=== PATIENT | female | born 1950 | race Caucasian/White ===

== ENCOUNTER 2023-05-05 04:31 | Emergency (ER) | payer MEDICARE, SELFPAY ==
[2023-05-05 04:34] VITALS: BP 183/91; PULSE 104; RESP 18; TEMP 36.4; O2SAT 97; BMI 26.6
--- NOTE | 2023-05-05 04:50 | ED_ITS ---
HPI - General Adult General Chief complaint: Weakness Stated complaint: FEVER Time Seen by Provider: 05/05/23 04:47 Source: patient Mode of arrival: Wheelchair History of Present Illness HPI narrative: seen by her doctor yesterday and prescribed bactrim ds for UTI. Took one dose last PM. Now presents with sl. headache, body aches and chills. No cough or dyspnea. No complaint of abdominal pain. Symptoms started 3 days ago. Had dysuria/hematuria for one day that resolved and then returned a couple of days later. States seen by PCP yesterday and prescribed bactrim. Now presents complaining of bilat lower back pain, body aches and chills Onset (ago): day(s) Related Data Previous Rx's Medication Instructions Recorded nitrofurantoin 100 mg PO BID 7 days #14 caps 05/05/23 monohydrate/macrocrystals 100 mg capsule (Macrobid) Allergies Allergy/AdvReac Type Severity Reaction Status Date / Time ciprofloxacin [From Cipro] Allergy Mild Diarrhea Verified 05/05/23 05:21 Review of Systems ROS Status of ROS 10 or more systems reviewed and unremarkable except as noted in history and below [facility] Social History Smoking status: Never smoker Exam Constitutional Vital Signs, click to edit/add: Last Vital Signs Temp 99.6 F 05/05/23 10:49 Pulse 98 H 05/05/23 10:49 Resp 12 05/05/23 10:49 BP 106/59 05/05/23 10:49 Pulse Ox 97 05/05/23 10:49 O2 Del Method Room Air 05/05/23 10:49 Common normals: no apparent distress, average body habitus, oriented x3, no limitations, healthy appearing, alert and well nourished Eye Common normals: PERRL, EOMs intact bilaterally and conjunctivae normal Respiratory Common normals: normal respiratory effort, no retractions, no use of accessory muscles and clear to auscultation bilaterally GI Common normals: Normal to inspection, nondistended, normoactive bowel sounds present, soft to palpation and non-tender Extremity Common normals: normal to inspection, full ROM and normal capillary refill Neuro Common normals: oriented x3, CN's II-XII intact bilaterally, moves all extremities, no focal motor deficits and no sensory deficits noted Psych Appearance: grossly normal Course Vital Signs Vital signs: Vital Signs Temperature 97.6 F 05/05/23 04:34 Pulse Rate 104 H 05/05/23 04:34 Respiratory Rate 18 05/05/23 04:34 Blood Pressure 183/91 H 05/05/23 04:34 Pulse Oximetry 97 05/05/23 04:34 Oxygen Delivery Method Room Air 05/05/23 04:34 Temperature 99.6 F 05/05/23 10:49 Pulse Rate 98 H 05/05/23 10:49 Respiratory Rate 12 05/05/23 10:49 Blood Pressure 106/59 05/05/23 10:49 Pulse Oximetry 97 05/05/23 10:49 Oxygen Delivery Method Room Air 05/05/23 10:49 Medical Decision Making MDM Narrative Medical decision making narrative: patient presents with bilat back pain and body aches, chills. Was seen by her PCP yesterday and prescribed Bactrim ds. Took one dose last PM and this AM not able to find a comfortable decision due to body aches and chills. Urine results here with trace leukocytes. She is afebrile. Has mild right CVA tenderness. CT ordered for possible renal stones. Care transferred to Dr Mccarty at change of shift Lab Data Labs: Lab Results 05/05/23 05/05/23 05/05/23 Range/Units 05:10 06:10 06:10 WBC 10.3 (4.0-11.0) 10^3/uL RBC 4.63 (4.20-5.40) 10^6/uL Hgb 13.8 (12.0-16.0) g/dL Hct 41.5 (36.0-48.0) % MCV 89.6 (81.0-99.0) fL MCH 29.8 (26.7-34.0) pg MCHC 33.3 (29.9-35.2) g/dL RDW 13.1 (11.0-15.0) % Plt Count 233 (150-450) 10^3/uL MPV 9.4 L (9.5-13.5) fL Neut % (Auto) 89.7 H (43.0-75.0) % Lymph % (Auto) 5.9 L (20.5-60.0) % [place] % (Auto) 3.8 (1.7-12.0) % Eos % (Auto) 0.2 L (0.9-7.0) % Baso % (Auto) 0.1 L (0.2-2.0) % Neut # (Auto) 9.2 H (1.4-6.5) 10^3/uL Lymph # (Auto) 0.6 L (1.2-3.8) 10^3/uL [place] # (Auto) 0.4 (0.3-0.8) 10^3/uL Eos # (Auto) 0.0 (0.0-0.7) 10^3/uL Baso # (Auto) 0.0 (0.0-0.1) 10^3/uL Abs Immat Gran (auto) 0.03 (0.00-0.03) 10^3/uL Imm/Tot Granulo (auto) 0.3 (0.0-0.5) % Sodium 140 (136-145) mmol/L Potassium 3.9 (3.5-5.1) mmol/L Chloride 103 (98-107) mmol/L Carbon Dioxide 28.1 (21.0-32.0) mmol/L Anion Gap 12.8 BUN 11.0 (7.0-18.0) mg/dL Creatinine 1.01 (0.55-1.02) mg/dL Est GFR ( Amer) >60 (>=60) Est GFR (Non-Af Amer) 54 L (>=60) BUN/Creatinine Ratio 10.9 Glucose 105 (74-106) mg/dL Calcium 8.6 (8.5-10.1) mg/dL Total Bilirubin 0.2 (0.2-1.0) mg/dL AST 20 (15-37) U/L ALT 16 (14-59) U/L Alkaline Phosphatase 64 (46-116) U/L Total Protein 7.0 (6.4-8.2) g/dL Albumin 3.5 (3.4-5.0) g/dL Globulin 3.5 g/dL Albumin/Globulin Ratio 1.0 Urine Color Lt. yellow (YELLOW) Urine Clarity Clear (CLEAR) Urine pH 7.5 (5.0-9.0) Ur Specific [place] 1.020 (1.005-1.025) Urine Protein Negative (NEG/TRACE) mg/dL Urine Glucose (UA) Negative (NEGATIVE) mg/dL Urine Ketones Negative (NEGATIVE) mg/dL Urine Occult Blood Negative (NEGATIVE) Urine Nitrite Negative (NEGATIVE) Urine Bilirubin Negative (NEGATIVE) Urine Urobilinogen 0.2 (0.2-1.0) EU/dL Ur Leukocyte Esterase Small A (NEGATIVE) Urine RBC 0-2 Cancelled (0-2) #/HPF Urine WBC 0-2 A (NONE SEEN) #/HPF Ur Squamous Epith Cells (NONE/RARE) #/LPF Ur Transition Epith Cell Ur Renal Epithelial Cell Urine Crystals (None Seen) #/HPF Calcium Carbonate Cryst Calcium Phosphate Cryst Calcium Oxalate Crystal Cystine Crystals Uric Acid Crystals Triple Phos Crystals Tyrosine Crystals Amorphous Sediment Urine Bacteria (NONE SEEN) #/HPF Urine Casts (NONE SEEN) #/LPF Fatty Casts Hyaline Casts Fine Granular Casts Coarse Granular Casts Waxy Casts RBC Casts Urine Starch Urine Mucus (NONE SEEN) Urine Trichomonas Urine Yeast Urine Sperm Ur Oval Fat Bodies Ur Culture Indicated? Adenovirus (PCR) (NOT DETECTE) C. pneumoniae DNA (PCR) (NOT DETECTE) Coronavirus Type OC43 (NOT DETECTE) Coronavirus Type HKU1 (NOT DETECTE) Coronavirus Type 229E (NOT DETECTE) Coronavirus Type NL63 (NOT DETECTE) Human Metapneumovir PCR (NOT DETECTE) M. pneumoniae (PCR) (NOT DETECTE) Parainfluenza PCR (NOT DETECTE) Parainfluenza 2 (PCR) (NOT DETECTE) Parainfluenza 3 (PCR) (NOT DETECTE) Parainfluenza 4 (PCR) (NOT DETECTE) RSV (RT-PCR) (NOT DETECTE) Entero/Rhino (PCR) (NOT DETECTE) SARS-CoV-2 (PCR) (NOT DETECTE) Bordetella pertussis (PCR) (NOT DETECTE) B parapertussis DNA PCR (NOT DETECTE) Influenza Type A (PCR) (NOT DETECTE) Influenza Type B (PCR) (NOT DETECTE) 05/05/23 05/05/23 05/05/23 Range/Units 06:10 06:10 06:10 WBC (4.0-11.0) 10^3/uL RBC (4.20-5.40) 10^6/uL Hgb (12.0-16.0) g/dL Hct (36.0-48.0) % MCV (81.0-99.0) fL MCH (26.7-34.0) pg MCHC (29.9-35.2) g/dL RDW (11.0-15.0) % Plt Count (150-450) 10^3/uL MPV (9.5-13.5) fL Neut % (Auto) (43.0-75.0) % Lymph % (Auto) (20.5-60.0) % [place] % (Auto) (1.7-12.0) % Eos % (Auto) (0.9-7.0) % Baso % (Auto) (0.2-2.0) % Neut # (Auto) (1.4-6.5) 10^3/uL Lymph # (Auto) (1.2-3.8) 10^3/uL [place] # (Auto) (0.3-0.8) 10^3/uL Eos # (Auto) (0.0-0.7) 10^3/uL Baso # (Auto) (0.0-0.1) 10^3/uL Abs Immat Gran (auto) (0.00-0.03) 10^3/uL Imm/Tot Granulo (auto) (0.0-0.5) % Sodium (136-145) mmol/L Potassium (3.5-5.1) mmol/L Chloride (98-107) mmol/L Carbon Dioxide (21.0-32.0) mmol/L Anion Gap BUN (7.0-18.0) mg/dL Creatinine (0.55-1.02) mg/dL Est GFR ( Amer) (>=60) Est GFR (Non-Af Amer) (>=60) BUN/Creatinine Ratio Glucose (74-106) mg/dL Calcium (8.5-10.1) mg/dL Total Bilirubin (0.2-1.0) mg/dL AST (15-37) U/L ALT (14-59) U/L Alkaline Phosphatase (46-116) U/L Total Protein (6.4-8.2) g/dL Albumin (3.4-5.0) g/dL Globulin g/dL Albumin/Globulin Ratio Urine Color (YELLOW) Urine Clarity (CLEAR) Urine pH (5.0-9.0) Ur Specific [place] (1.005-1.025) Urine Protein (NEG/TRACE) mg/dL Urine Glucose (UA) (NEGATIVE) mg/dL Urine Ketones (NEGATIVE) mg/dL Urine Occult Blood (NEGATIVE) Urine Nitrite (NEGATIVE) Urine Bilirubin (NEGATIVE) Urine Urobilinogen (0.2-1.0) EU/dL Ur Leukocyte Esterase (NEGATIVE) Urine RBC (0-2) #/HPF Urine WBC Cancelled (NONE SEEN) #/HPF Ur Squamous Epith Cells Few A Cancelled (NONE/RARE) #/LPF Ur Transition Epith Cell Cancelled Ur Renal Epithelial Cell Cancelled Urine Crystals None seen Cancelled (None Seen) #/HPF Calcium Carbonate Cryst Cancelled Calcium Phosphate Cryst Cancelled Calcium Oxalate Crystal Cancelled Cystine Crystals Cancelled Uric Acid Crystals Cancelled Triple Phos Crystals Cancelled Tyrosine Crystals Cancelled Amorphous Sediment Cancelled Urine Bacteria None seen (NONE SEEN) #/HPF Urine Casts (NONE SEEN) #/LPF Fatty Casts Hyaline Casts Fine Granular Casts Coarse Granular Casts Waxy Casts RBC Casts Urine Starch Urine Mucus (NONE SEEN) Urine Trichomonas Urine Yeast Urine Sperm Ur Oval Fat Bodies Ur Culture Indicated? Adenovirus (PCR) (NOT DETECTE) C. pneumoniae DNA (PCR) (NOT DETECTE) Coronavirus Type OC43 (NOT DETECTE) Coronavirus Type HKU1 (NOT DETECTE) Coronavirus Type 229E (NOT DETECTE) Coronavirus Type NL63 (NOT DETECTE) Human Metapneumovir PCR (NOT DETECTE) M. pneumoniae (PCR) (NOT DETECTE) Parainfluenza PCR (NOT DETECTE) Parainfluenza 2 (PCR) (NOT DETECTE) Parainfluenza 3 (PCR) (NOT DETECTE) Parainfluenza 4 (PCR) (NOT DETECTE) RSV (RT-PCR) (NOT DETECTE) Entero/Rhino (PCR) (NOT DETECTE) SARS-CoV-2 (PCR) (NOT DETECTE) Bordetella pertussis (PCR) (NOT DETECTE) B parapertussis DNA PCR (NOT DETECTE) Influenza Type A (PCR) (NOT DETECTE) Influenza Type B (PCR) (NOT DETECTE) 0905/05/23 05/05/23 Range/Units 06:10 06:10 06:10 WBC (4.0-11.0) 10^3/uL RBC (4.20-5.40) 10^6/uL Hgb (12.0-16.0) g/dL Hct (36.0-48.0) % MCV (81.0-99.0) fL MCH (26.7-34.0) pg MCHC (29.9-35.2) g/dL RDW (11.0-15.0) % Plt Count (150-450) 10^3/uL MPV (9.5-13.5) fL Neut % (Auto) (43.0-75.0) % Lymph % (Auto) (20.5-60.0) % [place] % (Auto) (1.7-12.0) % Eos % (Auto) (0.9-7.0) % Baso % (Auto) (0.2-2.0) % Neut # (Auto) (1.4-6.5) 10^3/uL Lymph # (Auto) (1.2-3.8) 10^3/uL [place] # (Auto) (0.3-0.8) 10^3/uL Eos # (Auto) (0.0-0.7) 10^3/uL Baso # (Auto) (0.0-0.1) 10^3/uL Abs Immat Gran (auto) (0.00-0.03) 10^3/uL Imm/Tot Granulo (auto) (0.0-0.5) % Sodium (136-145) mmol/L Potassium (3.5-5.1) mmol/L Chloride (98-107) mmol/L Carbon Dioxide (21.0-32.0) mmol/L Anion Gap BUN (7.0-18.0) mg/dL Creatinine (0.55-1.02) mg/dL Est GFR ( Amer) (>=60) Est GFR (Non-Af Amer) (>=60) BUN/Creatinine Ratio Glucose (74-106) mg/dL Calcium (8.5-10.1) mg/dL Total Bilirubin (0.2-1.0) mg/dL AST (15-37) U/L ALT (14-59) U/L Alkaline Phosphatase (46-116) U/L Total Protein (6.4-8.2) g/dL Albumin (3.4-5.0) g/dL Globulin g/dL Albumin/Globulin Ratio Urine Color (YELLOW) Urine Clarity (CLEAR) Urine pH (5.0-9.0) Ur Specific [place] (1.005-1.025) Urine Protein (NEG/TRACE) mg/dL Urine Glucose (UA) (NEGATIVE) mg/dL Urine Ketones (NEGATIVE) mg/dL Urine Occult Blood (NEGATIVE) Urine Nitrite (NEGATIVE) Urine Bilirubin (NEGATIVE) Urine Urobilinogen (0.2-1.0) EU/dL Ur Leukocyte Esterase (NEGATIVE) Urine RBC (0-2) #/HPF Urine WBC (NONE SEEN) #/HPF Ur Squamous Epith Cells (NONE/RARE) #/LPF Ur Transition Epith Cell Ur Renal Epithelial Cell Urine Crystals (None Seen) #/HPF Calcium Carbonate Cryst Calcium Phosphate Cryst Calcium Oxalate Crystal Cystine Crystals Uric Acid Crystals Triple Phos Crystals Tyrosine Crystals Amorphous Sediment Urine Bacteria Cancelled (NONE SEEN) #/HPF Urine Casts None seen Cancelled (NONE SEEN) #/LPF Fatty Casts Cancelled Hyaline Casts Cancelled Fine Granular Casts Cancelled Coarse Granular Casts Cancelled Waxy Casts Cancelled RBC Casts Cancelled Urine Starch Cancelled Urine Mucus None seen Cancelled (NONE SEEN) Urine Trichomonas Cancelled Urine Yeast Cancelled Urine Sperm Cancelled Ur Oval Fat Bodies Cancelled Ur Culture Indicated? No Adenovirus (PCR) (NOT DETECTE) C. pneumoniae DNA (PCR) (NOT DETECTE) Coronavirus Type OC43 (NOT DETECTE) Coronavirus Type HKU1 (NOT DETECTE) Coronavirus Type 229E (NOT DETECTE) Coronavirus Type NL63 (NOT DETECTE) Human Metapneumovir PCR (NOT DETECTE) M. pneumoniae (PCR) (NOT DETECTE) Parainfluenza PCR (NOT DETECTE) Parainfluenza 2 (PCR) (NOT DETECTE) Parainfluenza 3 (PCR) (NOT DETECTE) Parainfluenza 4 (PCR) (NOT DETECTE) RSV (RT-PCR) (NOT DETECTE) Entero/Rhino (PCR) (NOT DETECTE) SARS-CoV-2 (PCR) (NOT DETECTE) Bordetella pertussis (PCR) (NOT DETECTE) B parapertussis DNA PCR (NOT DETECTE) Influenza Type A (PCR) (NOT DETECTE) Influenza Type B (PCR) (NOT DETECTE) 05/05/23 05/05/23 Range/Units 06:10 08:08 WBC (4.0-11.0) 10^3/uL RBC (4.20-5.40) 10^6/uL Hgb (12.0-16.0) g/dL Hct (36.0-48.0) % MCV (81.0-99.0) fL MCH (26.7-34.0) pg MCHC (29.9-35.2) g/dL RDW (11.0-15.0) % Plt Count (150-450) 10^3/uL MPV (9.5-13.5) fL Neut % (Auto) (43.0-75.0) % Lymph % (Auto) (20.5-60.0) % [place] % (Auto) (1.7-12.0) % Eos % (Auto) (0.9-7.0) % Baso % (Auto) (0.2-2.0) % Neut # (Auto) (1.4-6.5) 10^3/uL Lymph # (Auto) (1.2-3.8) 10^3/uL [place] # (Auto) (0.3-0.8) 10^3/uL Eos # (Auto) (0.0-0.7) 10^3/uL Baso # (Auto) (0.0-0.1) 10^3/uL Abs Immat Gran (auto) (0.00-0.03) 10^3/uL Imm/Tot Granulo (auto) (0.0-0.5) % Sodium (136-145) mmol/L Potassium (3.5-5.1) mmol/L Chloride (98-107) mmol/L Carbon Dioxide (21.0-32.0) mmol/L Anion Gap BUN (7.0-18.0) mg/dL Creatinine (0.55-1.02) mg/dL Est GFR ( Amer) (>=60) Est GFR (Non-Af Amer) (>=60) BUN/Creatinine Ratio Glucose (74-106) mg/dL Calcium (8.5-10.1) mg/dL Total Bilirubin (0.2-1.0) mg/dL AST (15-37) U/L ALT (14-59) U/L Alkaline Phosphatase (46-116) U/L Total Protein (6.4-8.2) g/dL Albumin (3.4-5.0) g/dL Globulin g/dL Albumin/Globulin Ratio Urine Color (YELLOW) Urine Clarity (CLEAR) Urine pH (5.0-9.0) Ur Specific [place] (1.005-1.025) Urine Protein (NEG/TRACE) mg/dL Urine Glucose (UA) (NEGATIVE) mg/dL Urine Ketones (NEGATIVE) mg/dL Urine Occult Blood (NEGATIVE) Urine Nitrite (NEGATIVE) Urine Bilirubin (NEGATIVE) Urine Urobilinogen (0.2-1.0) EU/dL Ur Leukocyte Esterase (NEGATIVE) Urine RBC (0-2) #/HPF Urine WBC (NONE SEEN) #/HPF Ur Squamous Epith Cells (NONE/RARE) #/LPF Ur Transition Epith Cell Ur Renal Epithelial Cell Urine Crystals (None Seen) #/HPF Calcium Carbonate Cryst Calcium Phosphate Cryst Calcium Oxalate Crystal Cystine Crystals Uric Acid Crystals Triple Phos Crystals Tyrosine Crystals Amorphous Sediment Urine Bacteria (NONE SEEN) #/HPF Urine Casts (NONE SEEN) #/LPF Fatty Casts Hyaline Casts Fine Granular Casts Coarse Granular Casts Waxy Casts RBC Casts Urine Starch Urine Mucus (NONE SEEN) Urine Trichomonas Urine Yeast Urine Sperm Ur Oval Fat Bodies Ur Culture Indicated? Cancelled Adenovirus (PCR) Not detected (NOT DETECTE) C. pneumoniae DNA (PCR) Not detected (NOT DETECTE) Coronavirus Type OC43 Not detected (NOT DETECTE) Coronavirus Type HKU1 Not detected (NOT DETECTE) Coronavirus Type 229E Not detected (NOT DETECTE) Coronavirus Type NL63 Not detected (NOT DETECTE) Human Metapneumovir PCR Not detected (NOT DETECTE) M. pneumoniae (PCR) Not detected (NOT DETECTE) Parainfluenza PCR Not detected (NOT DETECTE) Parainfluenza 2 (PCR) Not detected (NOT DETECTE) Parainfluenza 3 (PCR) Not detected (NOT DETECTE) Parainfluenza 4 (PCR) Not detected (NOT DETECTE) RSV (RT-PCR) Not detected (NOT DETECTE) Entero/Rhino (PCR) Not detected (NOT DETECTE) SARS-CoV-2 (PCR) Not detected (NOT DETECTE) Bordetella pertussis (PCR) Not detected (NOT DETECTE) B parapertussis DNA PCR Not detected (NOT DETECTE) Influenza Type A (PCR) Not detected (NOT DETECTE) Influenza Type B (PCR) Not detected (NOT DETECTE) Discharge Plan Discharge Chief Complaint: Weakness Clinical Impression: Weakness Patient Disposition: Home, Self-Care Time of Disposition Decision: 10:39 Condition: Good Mode of Transportation: Private Vehicle Prescriptions / Home Meds: New nitrofurantoin monohyd/m-cryst [Macrobid] 100 mg capsule 100 mg PO BID 7 Days Qty: 14 0RF Rx Instructions: must administer with a meal/food Instructions: Urinary Tract Infection in Women (ED), Weakness (ED) Stand Alone Forms: Portal Instructions Referrals: Physician,Non-Staff, MD [Primary Care Provider] - 1 week Discharge Date/Time: 05/05/23 11:00
[2023-05-05 05:23] LABS: Basophils Percent Auto 0.1 % (0.2-2.0); Eosinophils Percent Auto 0.2 % (0.9-7.0); Hematocrit 41.5 % (36.0-48.0); Hemoglobin 13.8 g/dL (12.0-16.0); Immature Granulocytes Abs Auto 0.03 10^3/uL (0.00-0.03); Immature Granulocytes Pct Auto 0.3 % (0.0-0.5); Lymphocytes Absolute Auto 0.6 10^3/uL (1.2-3.8); Lymphocytes Percent Auto 5.9 % (20.5-60.0); Mean Corpuscular HGB Conc 33.3 g/dL (29.9-35.2); Mean Corpuscular Hemoglobin 29.8 pg (26.7-34.0); Mean Corpuscular Volume 89.6 fL (81.0-99.0); Mean Platelet Volume 9.4 fL (9.5-13.5); Monocytes Absolute Auto 0.4 10^3/uL (0.3-0.8); Monocytes Percent Auto 3.8 % (1.7-12.0); Neutrophils Absolute Auto 9.2 10^3/uL (1.4-6.5); Neutrophils Percent Auto 89.7 % (43.0-75.0); Platelet Count 233 10^3/uL (150-450); Red Blood Count 4.63 10^6/uL (4.20-5.40); Red Cell Distribution Width 13.1 % (11.0-15.0); White Blood Count 10.3 10^3/uL (4.0-11.0)
[2023-05-05] MEDS: 0.9 % SODIUM CHLORIDE 1,000 ML 999 ML IV (05:36)
[2023-05-05 05:39] LABS: Alanine Aminotransferase 16 U/L (14-59); Albumin Level 3.5 g/dL (3.4-5.0); Alkaline Phosphatase 64 U/L (46-116); Anion Gap 12.8; Aspartate Amino Transferase 20 U/L (15-37); BUN Creatinine Ratio 10.9; Bilirubin Total 0.2 mg/dL (0.2-1.0); Calcium 8.6 mg/dL (8.5-10.1); Carbon Dioxide 28.1 mmol/L (21.0-32.0); Chloride 103 mmol/L (98-107); Estimated GFR (African America >60 (>=60); Estimated GFR (Non-African Ame 54 (>=60); Globulin 3.5 g/dL; Glucose 105 mg/dL (74-106); Potassium 3.9 mmol/L (3.5-5.1); Sodium 140 mmol/L (136-145)
[2023-05-05 06:17] LABS: Bilirubin Urine NEGATIVE (NEGATIVE); Blood Urine NEGATIVE (NEGATIVE); Clarity Urine CLEAR (CLEAR); Color Urine LT. YELLOW (YELLOW); Glucose Urine UA NEGATIVE (NEGATIVE); Ketones Urine NEGATIVE (NEGATIVE); Leukocyte Esterase Urine SMALL (NEGATIVE); Nitrite Urine NEGATIVE (NEGATIVE); Protein Urine NEGATIVE (NEG/TRACE); Urine Microscopic Indicated YES; Urobilinogen Urine 0.2 EU/dL (0.2-1.0); pH Urine 7.5 (5.0-9.0)
[2023-05-05 06:24] LABS: Bacteria Urine NONE SEEN #/HPF (NONE SEEN); Cast Seen? NONE SEEN #/LPF (NONE SEEN); Crystals Seen? None Seen #/HPF (None Seen); Mucus Urine NONE SEEN (NONE SEEN); RBC Urine 0-2 #/HPF (0-2); Squamous Epithelial Cell Urine FEW #/LPF (NONE/RARE); Urine Culture Indicated NO; WBC Urine 0-2 #/HPF (NONE SEEN)
--- NOTE | 2023-05-05 07:08 | CT_ITS ---
[address] [address] Patient Name: GERALD CERNA MRN: [id number] date: 1950 Sex: F Assigned Patient Location: ER Current Patient Location: [facility] Accession/Order Number: [id number] Exam Date: 05/05/2023 07:05 Report Date: 05/05/2023 07:37 At the request of: GIL FLORES Procedure: CT abdomen pelvis wo con EXAMINATION: CT abdomen pelvis wo con HISTORY: flank pain , weakness, nausea, vomiting COMPARISON: No relevant comparison available. TECHNIQUE: Axial, Coronal, and Sagittal images were created without IV contrast. Dose reduction techniques were achieved by using automated exposure control and/or adjustment of mA and/or kV according to patient size and/or use of iterative reconstruction technique. FINDINGS: LUNG BASES: No visible pulmonary or pleural disease. LIVER: No enlargement, atrophy, abnormal density, or significant focal lesion. BILIARY: No dilatation or calcification. PANCREAS: No lesion, fluid collection, ductal dilatation, or atrophy. SPLEEN: No enlargement or focal lesion. ADRENALS: No mass or enlargement. KIDNEYS: No mass, obstruction, or calcification. BOWEL/MESENTERY: The midportion of the appendix is minimally enlarged by strict size criteria measuring 6.7 mm axial image 82. No periappendiceal stranding or abscess. Nonobstructive bowel gas pattern. AORTA/VASCULAR: No aneurysm or dissection. RETROPERITONEUM: No mass or adenopathy. LYMPH NODES: No adenopathy. URINARY BLADDER: No visible focal wall thickening, lesion, or calculus. PELVIC ORGANS: No visible mass. Pelvic organs appropriate for patient age. ABDOMINAL WALL: No mass or hernia. BONES: No bony lesion or fracture. Moderate degenerative changes OTHER: Negative. CT/CT abdomen pelvis wo con IMPRESSION: No obstructive uropathy Minimal enlargement of the midportion of the appendix with no secondary signs of inflammation Electronically authenticated by: STEVIE PADILLA Date: 05/05/2023 07:37
[2023-05-05 08:20] LABS: Adenovirus NOT DETECTED (NOT DETECTE); Bordetella parapertussis NOT DETECTED (NOT DETECTE); Coronavirus 229E NOT DETECTED (NOT DETECTE); Coronavirus HKU1 NOT DETECTED (NOT DETECTE); Coronavirus NL63 NOT DETECTED (NOT DETECTE); Coronavirus OC43 NOT DETECTED (NOT DETECTE); Human Metapneumovirus NOT DETECTED (NOT DETECTE); Human Rhinovirus/Enterovirus NOT DETECTED (NOT DETECTE); Influenza A NOT DETECTED (NOT DETECTE); Influenza B NOT DETECTED (NOT DETECTE); Mycoplasma pneumoniae NOT DETECTED (NOT DETECTE); Parainfluenza Virus 1 NOT DETECTED (NOT DETECTE); Parainfluenza Virus 2 NOT DETECTED (NOT DETECTE); Parainfluenza Virus 3 NOT DETECTED (NOT DETECTE); Parainfluenza Virus 4 NOT DETECTED (NOT DETECTE); Respiratory Syncytial Virus NOT DETECTED (NOT DETECTE); SARS-CoV-2 NOT DETECTED (NOT DETECTE)
[2023-05-05 09:50] VITALS: BP 106/59; PULSE 98; RESP 14; TEMP 37.6; O2SAT 97
--- NOTE | 2023-05-05 10:41 | ED.GENADUL1 ---
HPI - General Adult General Chief complaint: Weakness Stated complaint: FEVER Time Seen by Provider: 05/05/23 04:47 Source: patient Mode of arrival: Wheelchair History of Present Illness HPI narrative: 72-year-old female presented to the emergency department and was initially seen by Dr. Kothari and signed out to me after discussing the case with him thoroughly. Please see his full history and physical exam. Related Data Previous Rx's Medication Instructions Recorded nitrofurantoin 100 mg PO BID 7 days #14 caps 05/05/23 monohydrate/macrocrystals 100 mg capsule (Macrobid) Allergies Allergy/AdvReac Type Severity Reaction Status Date / Time ciprofloxacin [From Cipro] Allergy Mild Diarrhea Verified 05/05/23 05:21 PFSH PFS Social History Smoking status: Never smoker Exam Constitutional Vital Signs, click to edit/add: Last Vital Signs Temp 99.6 F 05/05/23 09:50 Pulse 98 H 05/05/23 09:50 Resp 14 05/05/23 09:50 BP 106/59 05/05/23 09:50 Pulse Ox 97 05/05/23 09:50 O2 Del Method Room Air 05/05/23 04:34 Course Vital Signs Vital signs: Vital Signs Temperature 97.6 F 05/05/23 04:34 Pulse Rate 104 H 05/05/23 04:34 Respiratory Rate 18 05/05/23 04:34 Blood Pressure 183/91 H 05/05/23 04:34 Pulse Oximetry 97 05/05/23 04:34 Oxygen Delivery Method Room Air 05/05/23 04:34 Temperature 99.6 F 05/05/23 09:50 Pulse Rate 98 H 05/05/23 09:50 Respiratory Rate 14 05/05/23 09:50 Blood Pressure 106/59 05/05/23 09:50 Pulse Oximetry 97 05/05/23 09:50 Oxygen Delivery Method Room Air 05/05/23 04:34 Medical Decision Making [facility] Narrative Medical decision making narrative: the patient's extensive workup is negative. She has no abdominal tenderness whatsoever and I've no clinical suspicion of appendicitis. The patient had been put on Bactrim by her physician yesterday for urinary tract infection. On the patient's phone she has the result of urinalysis and she had white blood cells in the urine. She'll stop the Bactrim because the patient thinks she had a reaction to it and she's prescribed Macrobid instead. Scribe Macrobid additionally because she states she is ALLERGIC to an antibiotic that starts with the letter C. She doesn't know what it is so we will avoid cephalexin and Cipro. Treatment diagnosis and follow-up were discussed with the patient. Differential Diagnosis Differential Diagnosis: an acute kidney injury, urinary tract infection, dehydration, anemia Lab Data Lab results reviewed: Yes I reviewed the patient's lab results Labs: Lab Results 05/05/23 05/05/23 05/05/23 Range/Units 05:10 06:10 06:10 WBC 10.3 (4.0-11.0) 10^3/uL RBC 4.63 (4.20-5.40) 10^6/uL Hgb 13.8 (12.0-16.0) g/dL Hct 41.5 (36.0-48.0) % MCV 89.6 (81.0-99.0) fL MCH 29.8 (26.7-34.0) pg MCHC 33.3 (29.9-35.2) g/dL RDW 13.1 (11.0-15.0) % Plt Count 233 (150-450) 10^3/uL MPV 9.4 L (9.5-13.5) fL Neut % (Auto) 89.7 H (43.0-75.0) % Lymph % (Auto) 5.9 L (20.5-60.0) % [place]linger % (Auto) 3.8 (1.7-12.0) % Eos % (Auto) 0.2 L (0.9-7.0) % Baso % (Auto) 0.1 L (0.2-2.0) % Neut # (Auto) 9.2 H (1.4-6.5) 10^3/uL Lymph # (Auto) 0.6 L (1.2-3.8) 10^3/uL Bollinger # (Auto) 0.4 (0.3-0.8) 10^3/uL Eos # (Auto) 0.0 (0.0-0.7) 10^3/uL Baso # (Auto) 0.0 (0.0-0.1) 10^3/uL Abs Immat Gran (auto) 0.03 (0.00-0.03) 10^3/uL Imm/Tot Granulo (auto) 0.3 (0.0-0.5) % Sodium 140 (136-145) mmol/L Potassium 3.9 (3.5-5.1) mmol/L Chloride 103 (98-107) mmol/L Carbon Dioxide 28.1 (21.0-32.0) mmol/L Anion Gap 12.8 BUN 11.0 (7.0-18.0) mg/dL Creatinine 1.01 (0.55-1.02) mg/dL Est GFR ( Amer) >60 (>=60) Est GFR (Non-Af Amer) 54 L (>=60) BUN/Creatinine Ratio 10.9 Glucose 105 (74-106) mg/dL Calcium 8.6 (8.5-10.1) mg/dL Total Bilirubin 0.2 (0.2-1.0) mg/dL AST 20 (15-37) U/L ALT 16 (14-59) U/L Alkaline Phosphatase 64 (46-116) U/L Total Protein 7.0 (6.4-8.2) g/dL Albumin 3.5 (3.4-5.0) g/dL Globulin 3.5 g/dL Albumin/Globulin Ratio 1.0 Urine Color Lt. yellow (YELLOW) Urine Clarity Clear (CLEAR) Urine pH 7.5 (5.0-9.0) Ur Specific [place] 1.020 (1.005-1.025) Urine Protein Negative (NEG/TRACE) mg/dL Urine Glucose (UA) Negative (NEGATIVE) mg/dL Urine Ketones Negative (NEGATIVE) mg/dL Urine Occult Blood Negative (NEGATIVE) Urine Nitrite Negative (NEGATIVE) Urine Bilirubin Negative (NEGATIVE) Urine Urobilinogen 0.2 (0.2-1.0) EU/dL Ur Leukocyte Esterase Small A (NEGATIVE) Urine RBC 0-2 Cancelled (0-2) #/HPF Urine WBC 0-2 A (NONE SEEN) #/HPF Ur Squamous Epith Cells (NONE/RARE) #/LPF Ur Transition Epith Cell Ur Renal Epithelial Cell Urine Crystals (None Seen) #/HPF Calcium Carbonate Cryst Calcium Phosphate Cryst Calcium Oxalate Crystal Cystine Crystals Uric Acid Crystals Triple Phos Crystals Tyrosine Crystals Amorphous Sediment Urine Bacteria (NONE SEEN) #/HPF Urine Casts (NONE SEEN) #/LPF Fatty Casts Hyaline Casts Fine Granular Casts Coarse Granular Casts Waxy Casts RBC Casts Urine Starch Urine Mucus (NONE SEEN) Urine Trichomonas Urine Yeast Urine Sperm Ur Oval Fat Bodies Ur Culture Indicated? Adenovirus (PCR) (NOT DETECTE) C. pneumoniae DNA (PCR) (NOT DETECTE) Coronavirus Type OC43 (NOT DETECTE) Coronavirus Type HKU1 (NOT DETECTE) Coronavirus Type 229E (NOT DETECTE) Coronavirus Type NL63 (NOT DETECTE) Human Metapneumovir PCR (NOT DETECTE) M. pneumoniae (PCR) (NOT DETECTE) Parainfluenza PCR (NOT DETECTE) Parainfluenza 2 (PCR) (NOT DETECTE) Parainfluenza 3 (PCR) (NOT DETECTE) Parainfluenza 4 (PCR) (NOT DETECTE) RSV (RT-PCR) (NOT DETECTE) Entero/Rhino (PCR) (NOT DETECTE) SARS-CoV-2 (PCR) (NOT DETECTE) Bordetella pertussis (PCR) (NOT DETECTE) B parapertussis DNA PCR (NOT DETECTE) Influenza Type A (PCR) (NOT DETECTE) Influenza Type B (PCR) (NOT DETECTE) 05/05/23 05/05/23 05/05/23 Range/Units 06:10 06:10 06:10 WBC (4.0-11.0) 10^3/uL RBC (4.20-5.40) 10^6/uL Hgb (12.0-16.0) g/dL Hct (36.0-48.0) % MCV (81.0-99.0) fL MCH (26.7-34.0) pg MCHC (29.9-35.2) g/dL RDW (11.0-15.0) % Plt Count (150-450) 10^3/uL MPV (9.5-13.5) fL Neut % (Auto) (43.0-75.0) % Lymph % (Auto) (20.5-60.0) % Bollinger % (Auto) (1.7-12.0) % Eos % (Auto) (0.9-7.0) % Baso % (Auto) (0.2-2.0) % Neut # (Auto) (1.4-6.5) 10^3/uL Lymph # (Auto) (1.2-3.8) 10^3/uL Bollinger # (Auto) (0.3-0.8) 10^3/uL Eos # (Auto) (0.0-0.7) 10^3/uL Baso # (Auto) (0.0-0.1) 10^3/uL Abs Immat Gran (auto) (0.00-0.03) 10^3/uL Imm/Tot Granulo (auto) (0.0-0.5) % Sodium (136-145) mmol/L Potassium (3.5-5.1) mmol/L Chloride (98-107) mmol/L Carbon Dioxide (21.0-32.0) mmol/L Anion Gap BUN (7.0-18.0) mg/dL Creatinine (0.55-1.02) mg/dL Est GFR ( Amer) (>=60) Est GFR (Non-Af Amer) (>=60) BUN/Creatinine Ratio Glucose (74-106) mg/dL Calcium (8.5-10.1) mg/dL Total Bilirubin (0.2-1.0) mg/dL AST (15-37) U/L ALT (14-59) U/L Alkaline Phosphatase (46-116) U/L Total Protein (6.4-8.2) g/dL Albumin (3.4-5.0) g/dL Globulin g/dL Albumin/Globulin Ratio Urine Color (YELLOW) Urine Clarity (CLEAR) Urine pH (5.0-9.0) Ur Specific [place] (1.005-1.025) Urine Protein (NEG/TRACE) mg/dL Urine Glucose (UA) (NEGATIVE) mg/dL Urine Ketones (NEGATIVE) mg/dL Urine Occult Blood (NEGATIVE) Urine Nitrite (NEGATIVE) Urine Bilirubin (NEGATIVE) Urine Urobilinogen (0.2-1.0) EU/dL Ur Leukocyte Esterase (NEGATIVE) Urine RBC (0-2) #/HPF Urine WBC Cancelled (NONE SEEN) #/HPF Ur Squamous Epith Cells Few A Cancelled (NONE/RARE) #/LPF Ur Transition Epith Cell Cancelled Ur Renal Epithelial Cell Cancelled Urine Crystals None seen Cancelled (None Seen) #/HPF Calcium Carbonate Cryst Cancelled Calcium Phosphate Cryst Cancelled Calcium Oxalate Crystal Cancelled Cystine Crystals Cancelled Uric Acid Crystals Cancelled Triple Phos Crystals Cancelled Tyrosine Crystals Cancelled Amorphous Sediment Cancelled Urine Bacteria None seen (NONE SEEN) #/HPF Urine Casts (NONE SEEN) #/LPF Fatty Casts Hyaline Casts Fine Granular Casts Coarse Granular Casts Waxy Casts RBC Casts Urine Starch Urine Mucus (NONE SEEN) Urine Trichomonas Urine Yeast Urine Sperm Ur Oval Fat Bodies Ur Culture Indicated? Adenovirus (PCR) (NOT DETECTE) C. pneumoniae DNA (PCR) (NOT DETECTE) Coronavirus Type OC43 (NOT DETECTE) Coronavirus Type HKU1 (NOT DETECTE) Coronavirus Type 229E (NOT DETECTE) Coronavirus Type NL63 (NOT DETECTE) Human Metapneumovir PCR (NOT DETECTE) M. pneumoniae (PCR) (NOT DETECTE) Parainfluenza PCR (NOT DETECTE) Parainfluenza 2 (PCR) (NOT DETECTE) Parainfluenza 3 (PCR) (NOT DETECTE) Parainfluenza 4 (PCR) (NOT DETECTE) RSV (RT-PCR) (NOT DETECTE) Entero/Rhino (PCR) (NOT DETECTE) SARS-CoV-2 (PCR) (NOT DETECTE) Bordetella pertussis (PCR) (NOT DETECTE) B parapertussis DNA PCR (NOT DETECTE) Influenza Type A (PCR) (NOT DETECTE) Influenza Type B (PCR) (NOT DETECTE) 05/05/23 05/05/23 05/05/23 Range/Units 06:10 06:10 06:10 WBC (4.0-11.0) 10^3/uL RBC (4.20-5.40) 10^6/uL Hgb (12.0-16.0) g/dL Hct (36.0-48.0) % MCV (81.0-99.0) fL MCH (26.7-34.0) pg MCHC (29.9-35.2) g/dL RDW (11.0-15.0) % Plt Count (150-450) 10^3/uL MPV (9.5-13.5) fL Neut % (Auto) (43.0-75.0) % Lymph % (Auto) (20.5-60.0) % [place]linger % (Auto) (1.7-12.0) % Eos % (Auto) (0.9-7.0) % Baso % (Auto) (0.2-2.0) % Neut # (Auto) (1.4-6.5) 10^3/uL Lymph # (Auto) (1.2-3.8) 10^3/uL [place]linger # (Auto) (0.3-0.8) 10^3/uL Eos # (Auto) (0.0-0.7) 10^3/uL Baso # (Auto) (0.0-0.1) 10^3/uL Abs Immat Gran (auto) (0.00-0.03) 10^3/uL Imm/Tot Granulo (auto) (0.0-0.5) % Sodium (136-145) mmol/L Potassium (3.5-5.1) mmol/L Chloride (98-107) mmol/L Carbon Dioxide (21.0-32.0) mmol/L Anion Gap BUN (7.0-18.0) mg/dL Creatinine (0.55-1.02) mg/dL Est GFR ( Amer) (>=60) Est GFR (Non-Af Amer) (>=60) BUN/Creatinine Ratio Glucose (74-106) mg/dL Calcium (8.5-10.1) mg/dL Total Bilirubin (0.2-1.0) mg/dL AST (15-37) U/L ALT (14-59) U/L Alkaline Phosphatase (46-116) U/L Total Protein (6.4-8.2) g/dL Albumin (3.4-5.0) g/dL Globulin g/dL Albumin/Globulin Ratio Urine Color (YELLOW) Urine Clarity (CLEAR) Urine pH (5.0-9.0) Ur Specific [place] (1.005-1.025) Urine Protein (NEG/TRACE) mg/dL Urine Glucose (UA) (NEGATIVE) mg/dL Urine Ketones (NEGATIVE) mg/dL Urine Occult Blood (NEGATIVE) Urine Nitrite (NEGATIVE) Urine Bilirubin (NEGATIVE) Urine Urobilinogen (0.2-1.0) EU/dL Ur Leukocyte Esterase (NEGATIVE) Urine RBC (0-2) #/HPF Urine WBC (NONE SEEN) #/HPF Ur Squamous Epith Cells (NONE/RARE) #/LPF Ur Transition Epith Cell Ur Renal Epithelial Cell Urine Crystals (None Seen) #/HPF Calcium Carbonate Cryst Calcium Phosphate Cryst Calcium Oxalate Crystal Cystine Crystals Uric Acid Crystals Triple Phos Crystals Tyrosine Crystals Amorphous Sediment Urine Bacteria Cancelled (NONE SEEN) #/HPF Urine Casts None seen Cancelled (NONE SEEN) #/LPF Fatty Casts Cancelled Hyaline Casts Cancelled Fine Granular Casts Cancelled Coarse Granular Casts Cancelled Waxy Casts Cancelled RBC Casts Cancelled Urine Starch Cancelled Urine Mucus None seen Cancelled (NONE SEEN) Urine Trichomonas Cancelled Urine Yeast Cancelled Urine Sperm Cancelled Ur Oval Fat Bodies Cancelled Ur Culture Indicated? No Adenovirus (PCR) (NOT DETECTE) C. pneumoniae DNA (PCR) (NOT DETECTE) Coronavirus Type OC43 (NOT DETECTE) Coronavirus Type HKU1 (NOT DETECTE) Coronavirus Type 229E (NOT DETECTE) Coronavirus Type NL63 (NOT DETECTE) Human Metapneumovir PCR (NOT DETECTE) M. pneumoniae (PCR) (NOT DETECTE) Parainfluenza PCR (NOT DETECTE) Parainfluenza 2 (PCR) (NOT DETECTE) Parainfluenza 3 (PCR) (NOT DETECTE) Parainfluenza 4 (PCR) (NOT DETECTE) RSV (RT-PCR) (NOT DETECTE) Entero/Rhino (PCR) (NOT DETECTE) SARS-CoV-2 (PCR) (NOT DETECTE) Bordetella pertussis (PCR) (NOT DETECTE) B parapertussis DNA PCR (NOT DETECTE) Influenza Type A (PCR) (NOT DETECTE) Influenza Type B (PCR) (NOT DETECTE) 05/05/23 05/05/23 Range/Units 06:10 08:08 WBC (4.0-11.0) 10^3/uL RBC (4.20-5.40) 10^6/uL Hgb (12.0-16.0) g/dL Hct (36.0-48.0) % MCV (81.0-99.0) fL MCH (26.7-34.0) pg MCHC (29.9-35.2) g/dL RDW (11.0-15.0) % Plt Count (150-450) 10^3/uL MPV (9.5-13.5) fL Neut % (Auto) (43.0-75.0) % Lymph % (Auto) (20.5-60.0) % [place]linger % (Auto) (1.7-12.0) % Eos % (Auto) (0.9-7.0) % Baso % (Auto) (0.2-2.0) % Neut # (Auto) (1.4-6.5) 10^3/uL Lymph # (Auto) (1.2-3.8) 10^3/uL [place] # (Auto) (0.3-0.8) 10^3/uL Eos # (Auto) (0.0-0.7) 10^3/uL Baso # (Auto) (0.0-0.1) 10^3/uL Abs Immat Gran (auto) (0.00-0.03) 10^3/uL Imm/Tot Granulo (auto) (0.0-0.5) % Sodium (136-145) mmol/L Potassium (3.5-5.1) mmol/L Chloride (98-107) mmol/L Carbon Dioxide (21.0-32.0) mmol/L Anion Gap BUN (7.0-18.0) mg/dL Creatinine (0.55-1.02) mg/dL Est GFR ( Amer) (>=60) Est GFR (Non-Af Amer) (>=60) BUN/Creatinine Ratio Glucose (74-106) mg/dL Calcium (8.5-10.1) mg/dL Total Bilirubin (0.2-1.0) mg/dL AST (15-37) U/L ALT (14-59) U/L Alkaline Phosphatase (46-116) U/L Total Protein (6.4-8.2) g/dL Albumin (3.4-5.0) g/dL Globulin g/dL Albumin/Globulin Ratio Urine Color (YELLOW) Urine Clarity (CLEAR) Urine pH (5.0-9.0) Ur Specific [place] (1.005-1.025) Urine Protein (NEG/TRACE) mg/dL Urine Glucose (UA) (NEGATIVE) mg/dL Urine Ketones (NEGATIVE) mg/dL Urine Occult Blood (NEGATIVE) Urine Nitrite (NEGATIVE) Urine Bilirubin (NEGATIVE) Urine Urobilinogen (0.2-1.0) EU/dL Ur Leukocyte Esterase (NEGATIVE) Urine RBC (0-2) #/HPF Urine WBC (NONE SEEN) #/HPF Ur Squamous Epith Cells (NONE/RARE) #/LPF Ur Transition Epith Cell Ur Renal Epithelial Cell Urine Crystals (None Seen) #/HPF Calcium Carbonate Cryst Calcium Phosphate Cryst Calcium Oxalate Crystal Cystine Crystals Uric Acid Crystals Triple Phos Crystals Tyrosine Crystals Amorphous Sediment Urine Bacteria (NONE SEEN) #/HPF Urine Casts (NONE SEEN) #/LPF Fatty Casts Hyaline Casts Fine Granular Casts Coarse Granular Casts Waxy Casts RBC Casts Urine Starch Urine Mucus (NONE SEEN) Urine Trichomonas Urine Yeast Urine Sperm Ur Oval Fat Bodies Ur Culture Indicated? Cancelled Adenovirus (PCR) Not detected (NOT DETECTE) C. pneumoniae DNA (PCR) Not detected (NOT DETECTE) Coronavirus Type OC43 Not detected (NOT DETECTE) Coronavirus Type HKU1 Not detected (NOT DETECTE) Coronavirus Type 229E Not detected (NOT DETECTE) Coronavirus Type NL63 Not detected (NOT DETECTE) Human Metapneumovir PCR Not detected (NOT DETECTE) M. pneumoniae (PCR) Not detected (NOT DETECTE) Parainfluenza PCR Not detected (NOT DETECTE) Parainfluenza 2 (PCR) Not detected (NOT DETECTE) Parainfluenza 3 (PCR) Not detected (NOT DETECTE) Parainfluenza 4 (PCR) Not detected (NOT DETECTE) RSV (RT-PCR) Not detected (NOT DETECTE) Entero/Rhino (PCR) Not detected (NOT DETECTE) SARS-CoV-2 (PCR) Not detected (NOT DETECTE) Bordetella pertussis (PCR) Not detected (NOT DETECTE) B parapertussis DNA PCR Not detected (NOT DETECTE) Influenza Type A (PCR) Not detected (NOT DETECTE) Influenza Type B (PCR) Not detected (NOT DETECTE) Imaging Data CT scan - abdomen: Radiologist's impression: The [address] [place], [place] [address] Patient Name: GERALD CERNA MRN: [facility]:[id number] date: 1950 Sex: F Assigned Patient Location: ER Current Patient Location: ED.MAIN Accession/Order Number: [id number] Exam Date: 05/05/2023 07:05 Report Date: 05/05/2023 07:37 At the request of: GIL KOTHARI Procedure: CT abdomen pelvis wo con EXAMINATION: CT abdomen pelvis wo con HISTORY: flank pain , weakness, nausea, vomiting COMPARISON: No relevant comparison available. TECHNIQUE: Axial, Coronal, and Sagittal images were created without IV contrast. Dose reduction techniques were achieved by using automated exposure control and/or adjustment of mA and/or kV according to patient size and/or use of iterative reconstruction technique. FINDINGS: LUNG BASES: No visible pulmonary or pleural disease. LIVER: No enlargement, atrophy, abnormal density, or significant focal lesion. BILIARY: No dilatation or calcification. PANCREAS: No lesion, fluid collection, ductal dilatation, or atrophy. SPLEEN: No enlargement or focal lesion. ADRENALS: No mass or enlargement. KIDNEYS: No mass, obstruction, or calcification. BOWEL/MESENTERY: The midportion of the appendix is minimally enlarged by strict size criteria measuring 6.7 mm axial image 82. No periappendiceal stranding or abscess. Nonobstructive bowel gas pattern. AORTA/VASCULAR: No aneurysm or dissection. RETROPERITONEUM: No mass or adenopathy. LYMPH NODES: No adenopathy. URINARY BLADDER: No visible focal wall thickening, lesion, or calculus. PELVIC ORGANS: No visible mass. Pelvic organs appropriate for patient age. ABDOMINAL WALL: No mass or hernia. BONES: No bony lesion or fracture. Moderate degenerative changes OTHER: Negative. IMPRESSION: No obstructive uropathy Minimal enlargement of the midportion of the appendix with no secondary signs of inflammation Electronically authenticated by: STEVIE PADILLA Date: 05/05/2023 07:37 Discharge Plan Discharge Chief Complaint: Weakness Clinical Impression: Weakness Patient Disposition: Home, Self-Care Time of Disposition Decision: 10:39 Condition: Good Mode of Transportation: Private Vehicle Prescriptions / Home Meds: New nitrofurantoin monohyd/m-cryst [Macrobid] 100 mg capsule 100 mg PO BID 7 Days Qty: 14 0RF Rx Instructions: must administer with a meal/food Stand Alone Forms: Portal Instructions Referrals: Physician,Non-Staff, MD [Primary Care Provider] - 1 week
[2023-05-05 10:49] VITALS: BP 106/59; PULSE 98; RESP 12; TEMP 37.6; O2SAT 97
== END 2023-05-05 11:00 | disposition home or self-care (01) ==
PROVIDERS: Internal Medicine; Emergency Provider Emergency Medicine
DX: R53.1 Weakness (principal); Z20.822 Contact with and (suspected) exposure to COVID-19; Z87.440 Personal history of urinary (tract) infections
CPT/HCPCS: 0202U; 36415; 74176; 80053; 81001; 85025; 87086; 99284